=== PATIENT | male | born 1985 | race Caucasian/White ===

== ENCOUNTER 2023-04-20 08:11 | Day surgery (SDC) | payer OTHER ==
[~2023-04-20] VITALS: Ht 188 cm; Wt 76.3 kg
--- NOTE | 2023-04-20 09:26 | NUR ---
04/20/23 0926 URIEL KAT PT'S , TERRANCE, IS AT BEDSIDE. CALL LIGHT WITHIN REACH. PT TALKING, PLEASANT AND COOPERATIVE, WITH CARE.
--- NOTE | 2023-04-20 10:10 | NUR ---
04/20/23 1010 Tamica Bolanos TAP BLOCK PLACED BY DR. CASTILLO PRIOR TO PREP WITHOUT DIFFICULTY. PT TOLERATED PROCEDURE WELL.
--- NOTE | 2023-04-20 11:38 | NUR ---
04/20/23 1138 LUIS CRISOSTOMO MOM AND IN AT BEDSIDE. ALERT AND TALKATIVE.
== END 2023-04-20 12:13 | disposition home or self-care (01) ==
LOC: ORSCSDS 08:11
PROVIDERS: Surgery
PROC: 0YU50JZ Supplement Right Inguinal Region with Synthetic Substitute, Open Approach (ICD-10-PCS; principal; 2023-04-20 09:45)
DX: K40.90 Unilateral inguinal hernia, without obstruction or gangrene, not specified as recurrent (principal); F43.10 Post-traumatic stress disorder, unspecified; E78.00 Pure hypercholesterolemia, unspecified
CPT/HCPCS: C1781; J0690; J1100; J1885; J2250; J2371; J2405; J2704; J2795; J3010

== ENCOUNTER 2023-11-10 06:55 | Day surgery (SDC) | payer OTHER ==
[~2023-11-10] VITALS: Ht 188 cm; Wt 77.9 kg
[2023-11-10] MEDS ORDERED: Lactated Ringer's 1,000 ML IV ONE ×2 (07:24→07:25)
[2023-11-10] MEDS ORDERED: propofoL 50 ML IV ONE (07:24)
== END 2023-11-10 08:50 | disposition home or self-care (01) ==
LOC: ORSCSDS 06:55
PROVIDERS: Surgery
PROC: 0DJD8ZZ Inspection of Lower Intestinal Tract, Via Natural or Artificial Opening Endoscopic (ICD-10-PCS; principal; 2023-11-10 08:00)
DX: K62.5 Hemorrhage of anus and rectum (principal); R10.30 Lower abdominal pain, unspecified; K64.8 Other hemorrhoids; F43.10 Post-traumatic stress disorder, unspecified; E78.00 Pure hypercholesterolemia, unspecified
CPT/HCPCS: J2704; J7120